=== PATIENT | male | born 1945 | race Caucasian/White ===

== ENCOUNTER 2016-10-11 12:37 | Day surgery (SDC) | payer MEDICARE, OTHER ==
[2016-10-11] VITALS (213 sets, daily range): BP systolic 117–173; BP diastolic 77–115; PULSE 55–80; TEMP 97.4–98.4; O2SAT 88–98
[~2016-10-11] VITALS: Ht 180.3 cm; Wt 101.5 kg
[~2016-10-11 12:37] MED LIST: ADVAIR 250/28 DISKU1 IH; ADVIL200 MG PO; ASPIRIN 32325 MG/TAB PO; ASPIRIN E.C. 8181 MG PO; ATENOLOL50 MG PO; FERROUS SU325 MG/TAB PO; FLEXERIL10 MG PO; HCTZ 25MG25 MG PO; IMDUR 60MG60 MG/TAB PO; LEVOTHROID0.125 MG PO; LIPITOR 80MG80 MG PO; LIPITOR80 MG PO; LISINOPRIL20 MG PO; MVI; NITROSTAT0.4 MG/TAB SL; PAXIL 20MG20 MG PO; PEPCID 20MG TAB20 MG PO; PLAVIX 75MG TAB75 MG PO; PREDNISONE20 MG PO; PREVACID 30MG30 M1 PO; RANEXA1000 MG PO; RT SPIRIVA18 MCG IH; SINGULAIR 110 MG/TAB PO; SINGULAIR10 MG PO; SPIRIVA INH; SPIRIVA18 MCG IH; SYNTHROID0.15 MG PO; ULTRAM 50MG TAB50 MG PO; VENTOLIN0.09 MG IH; ZANTAC 150MG T150 MG PO; ZOCOR 40MG40 MG PO
[2016-10-11 14:06] LABS: HEMATOCRIT 43.7 % (42.0-52.0); HEMOGLOBIN 14.9 g/dl (13.5-18.0); MEAN CELL VOLUME 88 fl (80.0-100.0); MEAN CORPUSCULAR HEMOGLOBIN 30 pg (27.0-31.0); MEAN CORPUSCULAR HGB CONC 34 g/dl (33.0-37.0); MEAN PLATELET VOLUME 8.8 fl (7.4-10.4); PLATELET COUNT 199 K/mm3 (130-400); RED BLOOD COUNT 4.97 M/mm3 (4.20-5.60); REDCELL DISTRIBUTION WIDTH-CV 13.6 % (11.5-14.5)
[2016-10-11 14:11] LABS: PROTHROMBIN TIME 11.6 SECONDS (9.7-12.8)
[2016-10-11] MEDS ORDERED: MULTI VITAMINS1 TAB PO (14:14)
[2016-10-11 14:15] LABS: CALCIUM 9.1 mg/dL (8.4-10.2); CREATININE, serum 0.81 mg/dL (0.66-1.25); POTASSIUM 3.8 mmol/L (3.4-5.0)
[2016-10-11] MEDS ORDERED: B COMPLEX #11 TA1 PO (14:15)
[2016-10-11] MEDS ORDERED: LUTEIN20 M1 (14:16)
[2016-10-11] MEDS ORDERED: VITAMIN D 1001000 IU PO (14:17)
[2016-10-11] MEDS ORDERED: VITAMIN C500 MG PO (14:18)
[2016-10-11] MEDS ORDERED: OMEGA-3 1000 MG1 CAP PO (14:19)
[2016-10-11] MEDS ORDERED: PROAIR HFA0.09 MG/AC IH (14:20)
[2016-10-11] MEDS ORDERED: BYSTOLIC10 MG PO (14:26)
[2016-10-11] MEDS ORDERED: NYQUIL GENERIC PO (14:27)
[2016-10-11 15:16] LABS: THYROID STIMULATING HORMONE 0.71 uIU/mL (0.465-4.680)
[2016-10-12 03:52] VITALS: BP 148/78; PULSE 59; TEMP 98.1
[2016-10-12 04:00] VITALS: BP 148/78; PULSE 59; TEMP 98.1
[2016-10-12 08:12] LABS: BASO # 0.1 (0.0-0.2); BASO % 0.9 % (0.0-2.0); EOS # 0.2 (0.0-0.7); EOS % 3.2 % (0-4.0); GRAN # 5.5 (1.4-6.5); GRAN % 72.1 % (42.2-75.2); HEMATOCRIT 43.3 % (42.0-52.0); HEMOGLOBIN 14.3 g/dl (13.5-18.0); LYMPH # 0.9 (1.2-3.4); LYMPH % 11.3 % (20.0-51.0); MEAN CELL VOLUME 91 fl (80.0-100.0); MEAN CORPUSCULAR HEMOGLOBIN 30 pg (27.0-31.0); MEAN CORPUSCULAR HGB CONC 33 g/dl (33.0-37.0); MEAN PLATELET VOLUME 8.9 fl (7.4-10.4); MONO # 0.9 (0.1-0.6); MONO % 12.2 % (1.7-9.3); PLATELET COUNT 189 K/mm3 (130-400); RED BLOOD COUNT 4.78 M/mm3 (4.20-5.60); REDCELL DISTRIBUTION WIDTH-CV 13.9 % (11.5-14.5); WHITE BLOOD COUNT 7.6 K/mm3 (4.8-10.8)
[2016-10-12 08:45] LABS: CALCIUM 8.6 mg/dL (8.4-10.2); CREATININE, serum 0.85 mg/dL (0.66-1.25)
[2016-10-12 09:17] VITALS: BP 158/75; PULSE 71; TEMP 97.5
[2016-10-12 11:34] VITALS: BP 158/75; PULSE 71; TEMP 97.5
[2016-10-12 12:42] VITALS: BP 184/88; PULSE 62; TEMP 97.5
== END 2016-10-12 16:12 | disposition home or self-care (01) ==
LOC: COL.CAR 12:37 → ICU 15:48 → MEDICAL 21:14 → COL.CAR 10-12 16:12
PROVIDERS: Internal Medicine Interventional Cardiology
DX: I25.10 Atherosclerotic heart disease of native coronary artery without angina pectoris (principal); R06.02 Shortness of breath; R00.1 Bradycardia, unspecified; R07.9 Chest pain, unspecified; I10 Essential (primary) hypertension; E78.5 Hyperlipidemia, unspecified; J44.9 Chronic obstructive pulmonary disease, unspecified; F17.210 Nicotine dependence, cigarettes, uncomplicated; Z79.02 Long term (current) use of antithrombotics/antiplatelets; Z79.82 Long term (current) use of aspirin; Z79.899 Other long term (current) drug therapy
CPT/HCPCS: C1725; C1760; C1769; C1874; C1887; C9600; G0378; J0583; J2250; J3010; Q9967

== ENCOUNTER 2017-08-19 12:26 | Day surgery (SDC) | payer MEDICARE, OTHER ==
[2017-08-19] VITALS (10 sets, daily range): BP systolic 91–185; BP diastolic 58–100; PULSE 62–102; TEMP 98–98.3
[~2017-08-19] VITALS: Ht 180.3 cm; Wt 102.6 kg
[~2017-08-19 12:26] MED LIST changes: +B COMPLEX #11 TA1 PO; +BYSTOLIC10 MG PO; +LUTEIN20 M1; +MULTI VITAMINS1 TAB PO; +NYQUIL GENERIC PO; +OMEGA-3 1000 MG1 CAP PO; +PROAIR HFA0.09 MG/AC IH; +VITAMIN C500 MG PO; +VITAMIN D 1001000 IU PO; +ZESTRIL40 MG PO
[2017-08-19 13:28] LABS: HEMATOCRIT 46.6 % (42.0-52.0); HEMOGLOBIN 15.7 g/dl (13.5-18.0); MEAN CELL VOLUME 90 fl (80.0-100.0); MEAN CORPUSCULAR HEMOGLOBIN 30 pg (27.0-31.0); MEAN CORPUSCULAR HGB CONC 34 g/dl (33.0-37.0); MEAN PLATELET VOLUME 8.9 fl (7.4-10.4); PLATELET COUNT 200 K/mm3 (130-400); RED BLOOD COUNT 5.16 M/mm3 (4.20-5.60); REDCELL DISTRIBUTION WIDTH-CV 13.5 % (11.5-14.5)
[2017-08-19 13:33] LABS: PROTHROMBIN TIME 11.9 SECONDS (9.7-12.8)
[2017-08-19 13:46] LABS: CALCIUM 9.6 mg/dL (8.4-10.2); CREATININE, serum 1.05 mg/dL (0.66-1.25); POTASSIUM 3.9 mmol/L (3.4-5.0)
[2017-08-19 16:42] LABS: ARTERIAL BLD GAS O2 SATURATION 93.4 % (92-100); ARTERIAL BLD GAS TCO2 CT 28.6; ARTERIAL BLOOD GAS BASE EXCESS 3.3 (-2-2); ARTERIAL BLOOD GAS HCO3 27.4 meq/L (22-26); ARTERIAL BLOOD GAS PCO2 39.9 mmHg (35-45); ARTERIAL BLOOD GAS PO2 64.7 mmHg (80-100); ARTERIAL BLOOD GAS pH 7.45 (7.35-7.45)
== END 2017-08-19 19:36 | disposition home or self-care (01) ==
LOC: COL.CAR 12:26
PROVIDERS: Internal Medicine Interventional Cardiology
DX: I25.10 Atherosclerotic heart disease of native coronary artery without angina pectoris (principal); I70.213 Atherosclerosis of native arteries of extremities with intermittent claudication, bilateral legs; I10 Essential (primary) hypertension; F17.210 Nicotine dependence, cigarettes, uncomplicated; R06.02 Shortness of breath; J44.9 Chronic obstructive pulmonary disease, unspecified; E78.5 Hyperlipidemia, unspecified; D64.9 Anemia, unspecified; Z79.82 Long term (current) use of aspirin; Z83.3 Family history of diabetes mellitus; Z82.49 Family history of ischemic heart disease and other diseases of the circulatory system; Z80.6 Family history of leukemia
CPT/HCPCS: C1760; C1894; J2250; J3010

== ENCOUNTER → 2020-08-26 | Outpatient (CLI) | payer MEDICARE, OTHER ==
[2020-08-26 12:17] LABS: TROPONIN-I < 0.012 ng/mL (0.000-0.035)
== END ==
LOC: ZCOL.LAB 11:52
PROVIDERS: Nurse Practitioner
DX: R06.02 Shortness of breath (principal)

== ENCOUNTER → 2022-09-03 | Outpatient (CLI) | payer MEDICARE, OTHER ==
[2022-09-03 15:34] LABS: CALCIUM 9.8 mg/dL (8.4-10.2); CREATININE, serum 1.07 mg/dL (0.72-1.25); POTASSIUM 3.9 mmol/L (3.5-4.5)
== END ==
LOC: COL.LAB 14:52
PROVIDERS: Physician Assistant
DX: F17.200 Nicotine dependence, unspecified, uncomplicated (principal)